=== PATIENT | female | born 1955 | race Caucasian/White ===

== ENCOUNTER 2017-01-27 07:22 | Day surgery (SDC) | payer OTHER ==
--- NOTE | ~2017-01-27 | EGD ---
EGD REPORT [facility] [address] [place]. [address] NAME: PAXTON HOFFMAN : [birth year] [place]US [place] [facility] [place] [id number] AGE: 61 ADM/REG DATE : 01/27/17 MR#: [id number] REPORT SERV DATE: 01/27/17 DICTATED BY: DAGOBERTO MARTINEZ DATE: 01/27/17 REPORT STATUS : Draft [facility]: [facility] DATE: 01/27/17 [facility] Patient Name: Paxton Hoffman Date of : 1955 Attending MD: DAGOBERTO MARTINEZ MD Procedure Date No Time: 01/27/2017 Procedure: Upper GI endoscopy Indications: Dysphagia, Heartburn; Pantoprazole 40mg daily. Patient Profile: Informed consent was obtained from the patient by me prior to the procedure. Risks, benefits, and alternatives were discussed including the risk of bleeding, perforation, infection, reaction to medicine, missed lesion, and cardiopulmonary complications. Referring MD: KARINA PORTILLO MD Medicines: Monitored Anesthesia Care Complications: No immediate complications. Procedure: Pre-Anesthesia Assessment: - ASA Grade Assessment: III - A patient with severe systemic disease. After obtaining informed consent, the endoscope was passed under direct vision. Throughout the procedure, the patient's blood pressure, pulse, and oxygen saturations were monitored continuously. The GIF [id number] was introduced through the mouth, and advanced to the second part of duodenum. The endoscope was withdrawn with careful examination all mucosal surfaces including retroflexion stomach. The upper GI endoscopy was accomplished without difficulty. The patient tolerated the procedure well. Findings: The examined duodenum was normal. The entire examined stomach was normal. LA Grade A (one or more mucosal breaks less than 5 mm, not extending between tops of 2 mucosal folds) esophagitis was found. No nodules. The examined esophagus was normal. Biopsies were taken with a cold forceps for histology from mid and upper. 51F Savary dilation performed over guidewire held in antrum; mild resistance to dilation; endoscopic visualization afterwards superficial mucosal break near UES. Impression: - Normal examined duodenum. - Normal stomach. - LA Grade A reflux esophagitis. - Normal esophagus. Biopsied. Dilated. EGD REPORT [address] [address] NAME: PAXTON HOFFMAN : [birth year] [place] [facility] [place] [id number] AGE: 61 ADM/REG DATE : 01/27/17 MR#: [id number] REPORT SERV DATE: 01/27/17 DICTATED BY: DAGOBERTO MARTINEZ DATE: 01/27/17 REPORT STATUS : Draft TRANSCRIBED BY: [employer] DATE: 01/27/17 Recommendation: - Patient has a contact number available for emergencies. The signs and symptoms of potential delayed complications were discussed with the patient. Return to normal activities tomorrow. Written discharge instructions were provided to the patient. - Regular diet. - Continue present medications. - Await pathology results. - Increase Pantoprazole to 40mg bid. - Schd 4hr GET early satiety, GERD. Procedure Code(s): --- Professional --- 08732, Esophagogastroduodenoscopy, flexible, transoral; with insertion of guide wire followed by passage of dilator(s) through esophagus over guide wire 01349, Esophagogastroduodenoscopy, flexible, transoral; with biopsy, single or multiple Diagnosis Code(s): --- Professional --- K21.0, Gastro-esophageal reflux disease with esophagitis R13.10, Dysphagia, unspecified R12, Heartburn CPT copyright 2013 [employer]. All rights reserved. The codes documented in this report are preliminary and upon medical biller coder review may be revised to meet current compliance requirements. DAGOBERTO MARTINEZ MD 01/27/2017 8:50 AM This report has been signed electronically. Number of Addenda: 0 Note Initiated On: 01/27/2017 8:33 AM Scope Withdrawal Time 0 hours 0 minutes 0 seconds [address] [place] [address]
[~2017-01-27 07:22] MED LIST: BUSPAR5 PO; LEVSINTAB; LEVSINTAB SL; LIPITOR40 PO; MOBIC7.5 PO; PERCOCET1 TA2 PO; PRILO PO; ZANTAC 75 PO; ZESTRIL40 MG PO; ZOCOR40 PO; ZOL50 PO
== END 2017-01-27 23:59 | disposition home or self-care (01) ==
LOC: DMU 07:22
PROVIDERS: Internal Medicine Gastroenterology
PROC: 0D748ZZ Dilation of Esophagogastric Junction, Via Natural or Artificial Opening Endoscopic (ICD-10-PCS; principal; 2017-01-27 09:30)
PROC: 0DB58ZX Excision of Esophagus, Via Natural or Artificial Opening Endoscopic, Diagnostic (ICD-10-PCS; 2017-01-27 09:30)
DX: K21.0 Gastro-esophageal reflux disease with esophagitis (principal); I10 Essential (primary) hypertension; G43.909 Migraine, unspecified, not intractable, without status migrainosus
CPT/HCPCS: 88305; J2250; J2405; J3010